=== PATIENT | male | born 1935 | race Caucasian/White ===

== ENCOUNTER → 2021-11-16 | Day surgery (SDC) | payer MEDICARE, BC ==
[~2021-11-16] MED LIST: ASPIRIN 325MG325 MG PO; BREO ELLIPTA 11 EACH INH; ELIQUIS2.5 MG PO; HUMALOG SLIDING SCAL SQ; IPRAT-ALBUT 0.5-3 ML INH; JANUVIA50 MG PO; LEVOTHYROXINE25 MC1 PO; LOPRESSOR 25 MG25 MG PO; METFORMIN HCL500 MG PO; MICROZIDE12.5 MG PO; MOBIC15 MG PO; NEURONTIN 100100 MG PO; PRAVASTATIN SOD40 MG PO; PROTONIX40 MG PO; REQUIP0.5 MG PO; STOOL SOFTENER100 MG PO; TRELEGY ELLIPT1 EACH INH; VENTOLIN/PROVE0.5 ML INH; VITAMIN B-1100 MG PO; VITAMIN B-121000 MCG PO; VITAMIN B-1250 MG PO
== END | disposition home or self-care (01) ==
LOC: OR 06:22
DX: J18.1 Lobar pneumonia, unspecified organism (principal); J44.9 Chronic obstructive pulmonary disease, unspecified; J96.92 Respiratory failure, unspecified with hypercapnia; J96.91 Respiratory failure, unspecified with hypoxia; I11.0 Hypertensive heart disease with heart failure; I50.9 Heart failure, unspecified; E78.5 Hyperlipidemia, unspecified; K21.9 Gastro-esophageal reflux disease without esophagitis; E11.9 Type 2 diabetes mellitus without complications; E03.9 Hypothyroidism, unspecified; I48.92 Unspecified atrial flutter; G47.33 Obstructive sleep apnea (adult) (pediatric); F17.200 Nicotine dependence, unspecified, uncomplicated; E66.9 Obesity, unspecified; Z68.35 Body mass index [BMI] 35.0-35.9, adult; Z99.11 Dependence on respirator [ventilator] status; Z99.81 Dependence on supplemental oxygen; Z79.82 Long term (current) use of aspirin; Z79.1 Long term (current) use of non-steroidal anti-inflammatories (NSAID); Z79.4 Long term (current) use of insulin; Z79.899 Other long term (current) drug therapy
CPT/HCPCS: 36600; 71045; 76000; 82803; 82962; 87015; 87070; 87116; 87205; 87206; J2704; J7040

== ENCOUNTER → 2022-01-04 | Outpatient (CLI) | payer MEDICARE, BC | LOC: MRI 13:55 | DX: D51.9 Vitamin B12 deficiency anemia, unspecified (principal); D52.9 Folate deficiency anemia, unspecified; R91.8 Other nonspecific abnormal finding of lung field; Z85.038 Personal history of other malignant neoplasm of large intestine; J32.0 Chronic maxillary sinusitis | CPT/HCPCS: 36415; 70553; A9577 ==

== ENCOUNTER → 2022-01-18 | Day surgery (SDC) | payer MEDICARE, BC ==
[~2022-01-18] MED LIST changes: +ACETAMINOPHEN-1 EAC1 PO; +ASPIRIN81 MG PO; +HUMALOG100 UNIT/3 SC; +HYDROCHLOROTH12.5 MG PO; +PROAIR DIGIHAL90 MCG INH
== END | disposition home or self-care (01) ==
LOC: OR 01-17 07:59
DX: C34.11 Malignant neoplasm of upper lobe, right bronchus or lung (principal); I38 Endocarditis, valve unspecified; I11.0 Hypertensive heart disease with heart failure; I50.9 Heart failure, unspecified; R09.02 Hypoxemia; J44.9 Chronic obstructive pulmonary disease, unspecified; E78.5 Hyperlipidemia, unspecified; E11.42 Type 2 diabetes mellitus with diabetic polyneuropathy; E66.2 Morbid (severe) obesity with alveolar hypoventilation; I49.5 Sick sinus syndrome; Z87.891 Personal history of nicotine dependence; Z68.35 Body mass index [BMI] 35.0-35.9, adult; Z95.2 Presence of prosthetic heart valve; Z79.82 Long term (current) use of aspirin; Z20.822 Contact with and (suspected) exposure to COVID-19
CPT/HCPCS: 71045; 82962; J0171; J2370; J7030

== ENCOUNTER → 2022-01-24 | Outpatient (CLI) | payer MEDICARE, BC | LOC: EXRD 13:36 | DX: R07.9 Chest pain, unspecified (principal); R04.2 Hemoptysis; R91.8 Other nonspecific abnormal finding of lung field | CPT/HCPCS: 71046 ==